=== PATIENT | female | born 2000 | race African-American/Black ===

== ENCOUNTER 2024-07-20 02:20 | Emergency (ER) | payer OTHER ==
[~2024-07-20] VITALS: Ht 165.1 cm; Wt 66.7 kg
[2024-07-20 02:23] VITALS: PULSE 74; RESP 17; TEMP 98.3
[2024-07-20] MEDS: IBUPROFEN 600 MG TAB PO STA (02:51)
[2024-07-20 04:09] VITALS: BP 112/69; PULSE 69; RESP 14; TEMP 98; O2SAT 99
== END 2024-07-20 04:12 | disposition home or self-care (01) ==
LOC: ER 02:38
DX: M94.0 Chondrocostal junction syndrome [Tietze] (principal)
CPT/HCPCS: 71045; 93005; 99283